=== PATIENT | male | born 1965 | race Caucasian/White ===

== ENCOUNTER → 2016-09-28 | Outpatient (CLI) | payer MEDICARE ==
[~2016-09-28] MED LIST: ASPIR 8181 MG PO; ASPIRIN 325MG325 MG PO; AZITHROMYCIN250 MG PO; BUPROPION XL150 MG PO; COMBIVENT0.074 GM/I INH; LIPITOR TAB 2020 MG PO; LIPITOR20 MG PO; LOPRESSOR 25 MG25 MG PO; MEDROL DOSEPAK 24 MG PO; MELOXICAM15 MG PO; NEURONTIN 100100 MG PO; NITROSTAT0.4 MG PO; NORVASC 5 MG TAB5 MG PO; OMEPRAZOLE20 MG PO; PROMETHAZINE HC25 M1 PO; TRAMADOL HCL50 MG PO; WELLBUTRIN SR200 MG PO
== END ==
LOC: KOH-I 08:53
DX: Z00.01 Encounter for general adult medical examination with abnormal findings (principal); M54.17 Radiculopathy, lumbosacral region; M54.2 Cervicalgia; M25.561 Pain in right knee; M25.562 Pain in left knee; J44.9 Chronic obstructive pulmonary disease, unspecified; M51.16 Intervertebral disc disorders with radiculopathy, lumbar region; M41.9 Scoliosis, unspecified; J92.9 Pleural plaque without asbestos; M11.261 Other chondrocalcinosis, right knee
CPT/HCPCS: 71020; 72050; 72070; 72110; 73564

== ENCOUNTER 2016-11-04 20:30 | Emergency (ER) | payer MEDICARE | END 2016-11-04 22:15 | disposition home or self-care (01) | LOC: ER1 20:30 | DX: R22.41 Localized swelling, mass and lump, right lower limb (principal); M25.561 Pain in right knee; E78.5 Hyperlipidemia, unspecified; I11.9 Hypertensive heart disease without heart failure; J44.9 Chronic obstructive pulmonary disease, unspecified; Z88.6 Allergy status to analgesic agent | CPT/HCPCS: 73564; 99283 ==

== ENCOUNTER → 2020-07-22 | Outpatient (CLI) | payer MEDICARE, OTHER ==
[~2020-07-22] MED LIST changes: +ANTIVERT 25MG T25 MG PO; +AUGMENTIN 875-1 EACH PO; +IPRAT-ALBUT 0.5-3 ML NEB; +LEVOTHYROXINE112 MCG PO; +NICOTINE PATCH1 EAC5 TD; +NITROSTAT 0.40.4 MG SL; +NORCO 7.5-3251 EACH PO; +PHENERGAN 25 MG25 M1 PO; +PROTONIX 20 MG20 MG PO; +PROTONIX 40 MG40 M1 PO; +PULMICORT0.5 MG/2 M INH; +SEREVENT DISKU50 MCG INH; +SILDENAFIL20 MG PO; +SPIRIVA HANDIH18 MCG INH; +TRELEGY ELLIPT1 EACH INH; +VALIUM 5 MG TAB5 MG PO; +VENTOLIN HFA 66.7 GM INH; +WELLBUTRIN XL300 M1 PO; +ZYRTEC10 M3 PO
== END ==
LOC: RAD 13:55
DX: M79.645 Pain in left finger(s) (principal); S62.625D Displaced fracture of middle phalanx of left ring finger, subsequent encounter for fracture with routine healing; S60.455A Superficial foreign body of left ring finger, initial encounter; W22.8XXA Striking against or struck by other objects, initial encounter
CPT/HCPCS: 73140

== ENCOUNTER 2020-11-26 20:21 | Observation (INO) | payer MEDICARE, OTHER ==
[~2020-11-26] VITALS: Ht 175.3 cm; Wt 64.4 kg
[~2020-11-26 20:21] MED LIST changes: -AUGMENTIN 875-1 EACH PO; -IPRAT-ALBUT 0.5-3 ML NEB; -PROTONIX 40 MG40 M1 PO; -PULMICORT0.5 MG/2 M INH; -SEREVENT DISKU50 MCG INH; -SPIRIVA HANDIH18 MCG INH
[2020-11-26 21:00] LABS: RED BLOOD COUNT 4.34 M/UL (4.20-5.50); WHITE BLOOD COUNT 15.5 K/UL (4.5-11.0)
[2020-11-26 21:24] LABS: BUN/CREATININE RATIO 15 (0-10)
--- NOTE | 2020-11-27 01:17 | NUR ---
NOTIFIED DR GUTIERREZ TO VERIFY HOME [facility]. HE STATED HE WOULD LOOK AT IT. RECIEVED NO NEW ORDERS. WILL CONTINUE TO MONITOR.
[2020-11-27 05:41] LABS: HEMOGLOBIN 13.2 gm/dl (14.0-17.5); RED BLOOD COUNT 4.15 M/UL (4.20-5.50)
[2020-11-27 05:48] LABS: WHITE BLOOD COUNT 11.3 K/UL (4.5-11.0)
[2020-11-27 06:02] LABS: BUN/CREATININE RATIO 23 (0-10)
[2020-11-28 05:24] LABS: HEMOGLOBIN 11.7 gm/dl (14.0-17.5); RED BLOOD COUNT 3.71 M/UL (4.20-5.50); WHITE BLOOD COUNT 19.2 K/UL (4.5-11.0)
[2020-11-28 05:40] LABS: BUN/CREATININE RATIO 21 (0-10)
[2020-11-28] MEDS ORDERED: PULMICORT0.5 MG/2 M INH (11:28)
[2020-11-28] MEDS ORDERED: IPRAT-ALBUT 0.5-3 ML NEB (11:28)
[2020-11-28] MEDS ORDERED: VENTOLIN HFA 66.7 GM INH (11:28)
[2020-11-28] MEDS ORDERED: MEDROL DOSEPAK 24 MG PO (11:33)
[2020-11-28] MEDS ORDERED: AUGMENTIN 875-1 EACH PO (11:33)
[2020-11-28] MEDS ORDERED: SEREVENT DISKU50 MCG INH (11:33)
[2020-11-28] MEDS ORDERED: SPIRIVA HANDIH18 MCG INH (11:33)
--- NOTE | 2020-11-28 12:31 | NUR ---
INSTRUCTED HAVE PCP MAKE APPOINTMENT WITH PULMONOLOGY. INSURANCE REQUEST PCP TO DO. HOSPITAL CANNOT MAKE, REQUESTED PER PULMONOLOGY FOR PATIENT TO BE SEEN BY PCP AND THEN REFERRED TO SPECIALIST. VERBALIZED UNDERSTANDING. SIERRA HORVATH R.N.
== END 2020-11-28 15:01 | disposition home or self-care (01) ==
LOC: ER1 20:21 → MED SURG 4 22:27 → CDU 22:27 → MED SURG 4 11-27 00:30
PROVIDERS: Internal Medicine; Physician Assistant; ADMIT Internal Medicine
DX: A41.9 Sepsis, unspecified organism (principal); J96.01 Acute respiratory failure with hypoxia; J44.0 Chronic obstructive pulmonary disease with (acute) lower respiratory infection; J18.9 Pneumonia, unspecified organism; J44.1 Chronic obstructive pulmonary disease with (acute) exacerbation; R91.1 Solitary pulmonary nodule; D63.8 Anemia in other chronic diseases classified elsewhere; Z88.6 Allergy status to analgesic agent; I25.10 Atherosclerotic heart disease of native coronary artery without angina pectoris; I10 Essential (primary) hypertension; F41.9 Anxiety disorder, unspecified; K21.9 Gastro-esophageal reflux disease without esophagitis; F17.210 Nicotine dependence, cigarettes, uncomplicated; Z20.822 Contact with and (suspected) exposure to COVID-19; Z91.041 Radiographic dye allergy status; Z91.14 Patient's other noncompliance with medication regimen; Z99.81 Dependence on supplemental oxygen
CPT/HCPCS: 0240U; 36415; 36600; 71045; 71250; 80048; 80053; 82550; 82553; 82803; 83605; 83874; 84484; 85025; 86140; 87040; 87070; 87077; 87205; 94640; 94664; 94760; 96365; 96366; 96374; 96375; 96376; 99285; G0378; J0456; J0696; J2930; J7030

== ENCOUNTER 2020-11-29 10:49 | Observation (INO) | payer MEDICARE, OTHER ==
[~2020-11-29] VITALS: Ht 175.3 cm; Wt 64.9 kg
[~2020-11-29 10:49] MED LIST changes: +AUGMENTIN 875-1 EACH PO; +IPRAT-ALBUT 0.5-3 ML NEB; +PULMICORT0.5 MG/2 M INH; +SEREVENT DISKU50 MCG INH; +SPIRIVA HANDIH18 MCG INH
[2020-11-29 11:43] LABS: HEMOGLOBIN 12.6 gm/dl (14.0-17.5); RED BLOOD COUNT 3.99 M/UL (4.20-5.50); WHITE BLOOD COUNT 16.3 K/UL (4.5-11.0)
[2020-11-29 12:20] LABS: BUN/CREATININE RATIO 18 (0-10)
[2020-11-30 03:38] LABS: HEMOGLOBIN 11.4 gm/dl (14.0-17.5); WHITE BLOOD COUNT 18.1 K/UL (4.5-11.0)
[2020-11-30 03:56] LABS: RED BLOOD COUNT 3.57 M/UL (4.20-5.50)
[2020-11-30 04:19] LABS: BUN/CREATININE RATIO 21 (0-10)
[2020-12-01 04:16] LABS: HEMOGLOBIN 11.8 gm/dl (14.0-17.5); RED BLOOD COUNT 3.68 M/UL (4.20-5.50)
[2020-12-01 04:33] LABS: BUN/CREATININE RATIO 25 (0-10)
[2020-12-01] MEDS ORDERED: PROTONIX 40 MG40 M1 PO (11:14)
[2020-12-01] MEDS ORDERED: MEDROL DOSEPAK 24 MG PO (11:14)
[2020-12-01] MEDS ORDERED: IPRAT-ALBUT 0.5-3 ML NEB (11:14)
[2020-12-01] MEDS ORDERED: PULMICORT0.5 MG/2 M INH (11:14)
[2020-12-01] MEDS ORDERED: SPIRIVA HANDIH18 MCG INH (11:14)
[2020-12-01] MEDS ORDERED: SEREVENT DISKU50 MCG INH (11:14)
[2020-12-01] MEDS ORDERED: VENTOLIN HFA 66.7 GM INH (11:14)
[2020-12-01] MEDS ORDERED: AUGMENTIN 875-1 EACH PO (11:15)
== END 2020-12-01 12:22 | disposition home or self-care (01) ==
LOC: ER1 10:49 → CDU 14:49 → MED SURG 4 15:42
PROVIDERS: Emergency Medicine; Physician Assistant; Physician Assistant Medical; ADMIT Internal Medicine
DX: J44.0 Chronic obstructive pulmonary disease with (acute) lower respiratory infection (principal); J18.9 Pneumonia, unspecified organism; J44.1 Chronic obstructive pulmonary disease with (acute) exacerbation; J96.21 Acute and chronic respiratory failure with hypoxia; R91.1 Solitary pulmonary nodule; F17.210 Nicotine dependence, cigarettes, uncomplicated; I10 Essential (primary) hypertension; F41.9 Anxiety disorder, unspecified; E03.9 Hypothyroidism, unspecified; D64.89 Other specified anemias; M54.9 Dorsalgia, unspecified; I25.10 Atherosclerotic heart disease of native coronary artery without angina pectoris; D63.8 Anemia in other chronic diseases classified elsewhere; K21.9 Gastro-esophageal reflux disease without esophagitis; Z20.822 Contact with and (suspected) exposure to COVID-19; Z88.6 Allergy status to analgesic agent; Z91.041 Radiographic dye allergy status; Z79.51 Long term (current) use of inhaled steroids; Z79.899 Other long term (current) drug therapy
CPT/HCPCS: 36415; 71045; 80048; 80053; 82550; 82553; 83605; 83690; 83735; 84484; 85025; 85027; 86140; 87040; 93005; 94640; 94664; 94760; 96374; 96375; 96376; 99285; G0378; J0456; J0696; J2930; J7030; U0002

== ENCOUNTER → 2021-01-03 | Outpatient (CLI) | payer MEDICARE ==
[~2021-01-03] MED LIST changes: +CYCLOBENZAPRINE10 MG PO; +DULCOLAX STOOL100 MG PO; +PERCOCET 5-3251 EACH PO; +PROTONIX 40 MG40 M1 PO
== END ==
LOC: RAD 14:14
DX: J18.9 Pneumonia, unspecified organism (principal)
CPT/HCPCS: 71046

== ENCOUNTER 2021-03-03 12:02 | Emergency (ER) | payer MEDICARE ==
[~2021-03-03 12:02] MED LIST changes: -CYCLOBENZAPRINE10 MG PO; -DULCOLAX STOOL100 MG PO; -PERCOCET 5-3251 EACH PO
[2021-03-03] MEDS ORDERED: PERCOCET 5-3251 EACH PO (15:01)
== END 2021-03-03 15:17 | disposition home or self-care (01) ==
LOC: ER1 12:02
DX: S32.039A Unspecified fracture of third lumbar vertebra, initial encounter for closed fracture (principal); E78.5 Hyperlipidemia, unspecified; Z88.5 Allergy status to narcotic agent; Z91.041 Radiographic dye allergy status; X58.XXXA Exposure to other specified factors, initial encounter
CPT/HCPCS: 72131; 99283; J1885

== ENCOUNTER 2021-03-17 15:57 | Emergency (ER) | payer MEDICARE ==
[~2021-03-17 15:57] MED LIST changes: +PERCOCET 5-3251 EACH PO
[2021-03-17] MEDS ORDERED: DULCOLAX STOOL100 MG PO (17:57)
[2021-03-17] MEDS ORDERED: CYCLOBENZAPRINE10 MG PO (17:57)
== END 2021-03-17 18:13 | disposition home or self-care (01) ==
LOC: ER1 15:57
DX: K59.00 Constipation, unspecified (principal); Z88.1 Allergy status to other antibiotic agents; Z91.041 Radiographic dye allergy status; F17.200 Nicotine dependence, unspecified, uncomplicated; Z79.899 Other long term (current) drug therapy
CPT/HCPCS: 72100; 99283

== ENCOUNTER 2021-07-14 16:46 | Emergency (ER) | payer MEDICARE ==
[~2021-07-14 16:46] MED LIST changes: +CYCLOBENZAPRINE10 MG PO; +DULCOLAX STOOL100 MG PO
[2021-07-14 21:18] LABS: HEMOGLOBIN 14.6 gm/dl (14.0-17.5); RED BLOOD COUNT 4.61 M/UL (4.20-5.50); WHITE BLOOD COUNT 6.3 K/UL (4.5-11.0)
[2021-07-14 21:42] LABS: BUN/CREATININE RATIO 16 (0-10)
[2021-07-15] MEDS ORDERED: PROVENTIL HFA6.7 GM INH (01:00)
[2021-07-15] MEDS ORDERED: TAMIFLU75 MG PO (01:00)
[2021-07-15] MEDS ORDERED: ACETAMINOPHEN500 M1 PO (01:00)
[2021-07-15] MEDS ORDERED: BENZONATATE100 MG PO (01:00)
== END 2021-07-15 01:00 | disposition home or self-care (01) ==
LOC: ER1 16:46
PROVIDERS: Physician Assistant
DX: U07.1 COVID-19 (principal); J10.1 Influenza due to other identified influenza virus with other respiratory manifestations; J44.9 Chronic obstructive pulmonary disease, unspecified; F17.210 Nicotine dependence, cigarettes, uncomplicated; Z91.041 Radiographic dye allergy status
CPT/HCPCS: 71045; 80053; 82550; 82553; 83874; 83880; 84484; 85025; 85379; 85610; 85730; 93005; 99285

== ENCOUNTER 2021-07-17 11:35 | Emergency (ER) | payer MEDICARE ==
[~2021-07-17 11:35] MED LIST changes: +ACETAMINOPHEN500 M1 PO; +BENZONATATE100 MG PO; +PROVENTIL HFA6.7 GM INH; +TAMIFLU75 MG PO
[2021-07-17 12:46] LABS: HEMOGLOBIN 13.7 gm/dl (14.0-17.5); RED BLOOD COUNT 4.37 M/UL (4.20-5.50); WHITE BLOOD COUNT 5.4 K/UL (4.5-11.0)
[2021-07-17 13:04] LABS: BUN/CREATININE RATIO 14 (0-10)
[2021-07-17] MEDS ORDERED: IPRAT-ALBUT 0.5-3 ML INH (15:45)
[2021-07-17] MEDS ORDERED: DEXAMETHASONE6 MG PO (15:45)
[2021-07-17] MEDS ORDERED: MUCINEX600 MG PO (15:45)
[2021-07-17] MEDS ORDERED: DOXYCYCLINE HY100 M3 PO (15:45)
== END 2021-07-17 16:19 | disposition home or self-care (01) ==
LOC: ER1 11:35
PROVIDERS: Emergency Medicine
DX: U07.1 COVID-19 (principal); J44.1 Chronic obstructive pulmonary disease with (acute) exacerbation; I25.10 Atherosclerotic heart disease of native coronary artery without angina pectoris
CPT/HCPCS: 36600; 71045; 80048; 82550; 82553; 82803; 83874; 83880; 84484; 85025; 87040; 93005; 94640; 94664; 96374; 99285; J1100

== ENCOUNTER 2021-07-25 11:53 | Emergency (ER) | payer MEDICARE ==
[~2021-07-25 11:53] MED LIST changes: +DEXAMETHASONE6 MG PO; +DOXYCYCLINE HY100 M3 PO; +IPRAT-ALBUT 0.5-3 ML INH; +MUCINEX600 MG PO
[2021-07-25 14:46] LABS: RED BLOOD COUNT 4.1 M/UL (4.20-5.50); WHITE BLOOD COUNT 18.8 K/UL (4.5-11.0)
[2021-07-25 15:10] LABS: BUN/CREATININE RATIO 15 (0-10)
[2021-07-25] MEDS ORDERED: IPRAT-ALBUT 0.5-3 ML INH ×2 (16:56→16:58)
[2021-07-25] MEDS ORDERED: PREDNISONE20 MG PO ×2 (16:56→16:58)
== END 2021-07-25 17:59 | disposition home or self-care (01) ==
LOC: ER1 11:53
PROVIDERS: Family Medicine
DX: J44.1 Chronic obstructive pulmonary disease with (acute) exacerbation (principal); F17.200 Nicotine dependence, unspecified, uncomplicated; Z99.81 Dependence on supplemental oxygen; Z91.041 Radiographic dye allergy status; Z79.82 Long term (current) use of aspirin; D72.829 Elevated white blood cell count, unspecified; F19.10 Other psychoactive substance abuse, uncomplicated
CPT/HCPCS: 36600; 71045; 80053; 82550; 82553; 82803; 83605; 83874; 83880; 84439; 84443; 84484; 85025; 93005; 94640; 94664; 99284

== ENCOUNTER 2021-09-16 21:19 | Emergency (ER) | payer MEDICARE ==
[~2021-09-16 21:19] MED LIST changes: +PREDNISONE20 MG PO
[2021-09-16 22:34] LABS: HEMOGLOBIN 12.7 gm/dl (14.0-17.5); RED BLOOD COUNT 4.05 M/UL (4.20-5.50); WHITE BLOOD COUNT 11.5 K/UL (4.5-11.0)
[2021-09-16 23:20] LABS: BUN/CREATININE RATIO 20 (0-10)
== END 2021-09-17 02:08 | disposition home or self-care (01) ==
LOC: ER1 21:19
PROVIDERS: Family Medicine
DX: R10.32 Left lower quadrant pain (principal); J44.9 Chronic obstructive pulmonary disease, unspecified; F17.200 Nicotine dependence, unspecified, uncomplicated
CPT/HCPCS: 71046; 80053; 81001; 82550; 82553; 83690; 84484; 85025; 94640; 94664; 96374; 96375; 99285; J2270; J2405

== ENCOUNTER 2021-10-06 19:33 | Emergency (ER) | payer MEDICARE ==
[2021-10-06 19:53] LABS: HEMOGLOBIN 15.3 gm/dl (14.0-17.5); RED BLOOD COUNT 4.87 M/UL (4.20-5.50); WHITE BLOOD COUNT 14.3 K/UL (4.5-11.0)
[2021-10-06 20:18] LABS: BUN/CREATININE RATIO 12 (0-10)
[2021-10-06] MEDS ORDERED: IPRAT-ALBUT 0.5-3 ML INH (22:22)
== END 2021-10-06 22:45 | disposition left against medical advice (07) ==
LOC: ER1 19:33
PROVIDERS: Student in an Organized Health Care Education/Training Program
DX: J44.9 Chronic obstructive pulmonary disease, unspecified (principal); I25.10 Atherosclerotic heart disease of native coronary artery without angina pectoris; Z20.822 Contact with and (suspected) exposure to COVID-19; F17.210 Nicotine dependence, cigarettes, uncomplicated; Z91.041 Radiographic dye allergy status
CPT/HCPCS: 0240U; 36600; 71045; 80053; 82550; 82553; 82803; 83605; 83880; 84484; 85025; 85379; 87040; 93005; 94664; 96374; 99283; J2930